=== PATIENT | male | born 1960 | race Caucasian/White ===

== ENCOUNTER → 2021-06-29 | Outpatient (CLI) | payer OTHER ==
[~2021-06-29] MED LIST: ISOVUE-300 61% 50ML VIAL As Ordered ONE; LIDOCAINE 1% MDV 20ML VIAL As Ordered ONE; TRIAMCINOLONE ACETONIDE SUSP 40 MG/ML VIAL (J3301) As Ordered ONE
--- NOTE | 2021-06-29 18:44 | REP ---
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 COMPARISON: None TECHNIQUE: The procedure was performed by SONNY Mckeon, under the direct supervision of Dr. Oconnor. The benefits and risks of the procedure were explained to the patient, and an informed consent was obtained. Directly prior to the start of the procedure, a formal time-out was completed in the procedure room. The right 1st MTP joint space was localized using fluoroscopic guidance. The skin was prepped and draped in a sterile fashion. Approximately 2 mL of 1% Lidocaine 10 mg/ml was used as a local anesthetic. Using fluoroscopic guidance, a #22 gauge spinal needle was inserted and advanced into the right 1st MTP joint space. Approximately 0.5 mL of Isovue 300 was injected to verify placement. 1.5 mL of a solution containing 1 mL 1% lidocaine 10 mg/ml and 0.5 was injected into the joint space. The needle was removed and hemostasis was achieved. FINDINGS: The patient tolerated the procedure well and there were no immediate complications. IMPRESSION: 1. Technically successful right 1st MTP joint arthrogram. 0.1 minutes of fluoroscopy time was utilized for this procedure. Some fluoroscopic images are performed with last image hold technology. These images require no additional radiation. <Electronically signed by Meenu Cavazos > 06/29/21 1427 <Electronically signed by Severino Oconnor > 06/29/21 [id number]
== END ==
LOC: M RADPRO 13:21
PROVIDERS: ATTEND Physician Assistant
DX: M20.21 Hallux rigidus, right foot (principal)
CPT/HCPCS: 20600; 77002; J3301; Q9967

== ENCOUNTER → 2022-03-30 | Outpatient (CLI) | payer OTHER | LOC: M PLAIMG 08:14 | PROVIDERS: ATTEND Pain Medicine Interventional Pain Medicine | DX: M54.16 Radiculopathy, lumbar region (principal) ==

== ENCOUNTER → 2022-04-11 | Outpatient (REF) | payer OTHER | LOC: M LAB REF 17:18 | PROVIDERS: ATTEND Orthopaedic Surgery | DX: M06.9 Rheumatoid arthritis, unspecified (principal) ==

== ENCOUNTER 2023-05-23 06:13 | Day surgery (SDC) | payer OTHER ==
[~2023-05-23] VITALS: Ht 185.4 cm; Wt 101.2 kg
[~2023-05-23 06:13] MED LIST changes: +BAYE81TA10 PO; +BELS1TAB4 PO; +CELE0.09 PO; +CLOP75TA2 PO; +EZET10TA21 PO; +FLUT50SP17; -ISOVUE-300 61% 50ML VIAL As Ordered ONE; -LIDOCAINE 1% MDV 20ML VIAL As Ordered ONE; +METO1TAB32 PO; +PANT20TA6 PO; -TRIAMCINOLONE ACETONIDE SUSP 40 MG/ML VIAL (J3301) As Ordered ONE; +UNRESOLVED CLARIFICATION ENTRY XX SCH
[2023-05-23] MEDS ORDERED: LR 1,000 ML IV SCH (06:30)
[2023-05-23] MEDS ORDERED: ATOR1TAB19 (06:34)
[2023-05-23] MEDS ORDERED: LIDOCAINE 1% MDV 20ML VIAL As Ordered ONE (07:14)
[2023-05-23] MEDS ORDERED: propofoL 200 MG/20 ML VIAL As Ordered ONE (07:23)
[2023-05-23] MEDS ORDERED: MIDAZOLAM INJ 2MG/2ML VIAL As Ordered ONE (07:23)
[2023-05-23] MEDS ORDERED: ONDANSETRON 4MG 2ML VIAL As Ordered ONE (07:23)
[2023-05-23] MEDS ORDERED: LIDOCAINE 2% 100MG/5ML SDV (FOR ANES.) As Ordered ONE (07:23)
[2023-05-23] MEDS ORDERED: fentaNYL 100 MCG/2 ML INJECTION As Ordered ONE (07:23)
[2023-05-23] MEDS ORDERED: KETOROLAC 60MG 2ML VIAL As Ordered ONE (07:24)
[2023-05-23] MEDS ORDERED: ceFAZolin SOD 2 GM in IV 1 EA IV ONE (07:35)
[2023-05-23 08:49] VITALS: BP 128/76; TEMP 97.7; O2SAT 98
== END 2023-05-23 08:56 | disposition home or self-care (01) ==
LOC: M SDC 06:13
PROVIDERS: ATTEND Podiatrist Foot & Ankle Surgery
DX: M20.5X1 Other deformities of toe(s) (acquired), right foot (principal); R07.9 Chest pain, unspecified; Z95.5 Presence of coronary angioplasty implant and graft; Z79.899 Other long term (current) drug therapy
CPT/HCPCS: 28289; 76000; 88300; J0665; J0690; J1100; J1885; J2250; J2405; J3010

== ENCOUNTER → 2025-04-14 | Outpatient (REF) | payer MEDICARE, OTHER ==
[~2025-04-14] MED LIST changes: +ATOR1TAB19; -FLUT50SP17; +FLUTISP; -UNRESOLVED CLARIFICATION ENTRY XX SCH
[2025-04-14 13:49] LABS: APPEARANCE, URINE CLEAR (CLEAR); BACTERIA, URINE AUTO NEGATIVE (NEGATIVE); BILIRUBIN, URINE AUTO NEGATIVE (NEGATIVE); BLOOD, URINE BLOOD NEGATIVE (NEGATIVE); GLUCOSE, URINE (UA) AUTO NEGATIVE (NEGATIVE); KETONE, URINE AUTO NEGATIVE (NEGATIVE); LEUKOCYTE ESTERASE, URINE AUTO NEGATIVE (NEGATIVE); MUCUS, URINE SMALL (NEGATIVE); NITRITE, URINE AUTO NEGATIVE (NEGATIVE); PROTEIN, URINE AUTO NEGATIVE (NEGATIVE); RBC, URINE AUTO 0 /HPF (0-3); SPECIFIC GRAVITY URINE AUTO 1.025 (1.002-1.035); SQUAMOUS EPITHELIAL CELL UR AU 1 /HPF (0-6); UROBILINOGEN, URINE AUTO 0.2 mg/dL (0.0-2.0); WBC, URINE AUTO 0 /HPF (0-3)
== END ==
LOC: M SMT 12:48
PROVIDERS: ATTEND Nurse Practitioner Family
DX: R30.0 Dysuria (principal)